=== PATIENT | male | born 1955 | race Caucasian/White ===

== ENCOUNTER 2017-10-14 19:39 | Emergency (ER) | payer MEDICAID, MEDICARE ==
--- OUTSIDE RECORDS SUMMARY | 2017-10-14 20:26 | XMS REPORT ---
:1955 External Reference #:[id number] Author Organization [facility] Address [address] [place] [address] Phone [phone] Care Team Providers Name Role Phone John Paul Spencer M.D. Care Team Information Soil Technologist Unavailable Suman Winkler FNP Primary Care Physician Unavailable Payers Type Date Identification Numbers Payment Provider Subscriber Medicare Primary Policy Number: [id number] Medicare Rhett Corea PayID: [id number] [address] [place] [address] Medicaid Policy Number: [id number] Medicaid Rhett Corea PayID: [id number] [address] [place] [address] Problems Description No Information Family History Date Family Member(s) Problem(s) Comments Father Unknown Mother Unknown Social History Type Date Description Comments Cigarette Use Currently smokes 1-5 Cigarettes Daily ETOH Use Quit Using Alcohol. Recreational Drug Use Never Used Drugs Allergies, Adverse Reactions, Alerts Date Description Reaction Status Severity Comments 10/20/2015 NKDA active Medications Medication Date Status Form Strength Qnty SIG Indications Ordering Provider Montelukast 06/30/ Active Tablets 10mg 30tabs 1 by mouth Linden Flores 2017 every day Joceline Joyce Fluocinolone 06/30/ Active Oil 0.01% 1units 5 drops as Mark Acetonide Ear 2017 needed in [place], [place] the [place] affected ear twice a day. Gabapentin / Active Capsules 100mg 1 by mouth Unknown 0000 three times a day Isentress / Active Tablets 400mg Unknown 0000 Olopatadine HCL / Active Solution 0.6% Unknown 0000 Rabeprazole / Active Tablets DR 20mg 1 by mouth Unknown Sodium 0000 every day Truvada / Active Tablets 200-300mg Unknown 0000 Wellbutrin XL 00/00/ Active Tablets ER 300mg 1 by mouth Unknown 0000 24HR every day Xanax / Active Tablets 1mg Unknown 0000 Xarelto 00/ Active Tablets 1 by mouth Unknown 0000 every day Dexamethasone 02/15/ Hx Tablets 1mg 7tabs one tab Mark, 2015 - daily for Isiah, days. M.D. 2016 Dexamethasone 01/18/ Hx Tablets 1mg 20tabs one tab Mark, 2015 - daily for Isiah, days. M.D. 2015 Dexamethasone 11/30/ Hx Tablets 2mg 14tabs 1 by mouth Mark, 2015 - every day Isiah, 01/17/ M.D. 2016 Fentanyl / Hx Patches 12mcg/HR Unknown 0000 - 72HR 2016 Vital Signs Date Vital Result Comment 10/05/2017 Weight 206.00 lb Height 71.75 inches 5'11.75" BMI (Body Mass Index) 28.1 kg/m2 BP Systolic 134 mmHg BP Diastolic 95 mmHg Heart Rate 78 /min O2 % BldC Oximetry 98 % Body Temperature 98.1 F Pain Level 0 09/01/2016 Weight 206.00 lb Height 71.75 inches 5'11.75" BMI (Body Mass Index) 28.1 kg/m2 BP Systolic 112 mmHg BP Diastolic 70 mmHg Heart Rate 75 /min O2 % BldC Oximetry 95 % Body Temperature 97.3 F Pain Level 0 06/30/2016 Weight 208.00 lb Height 71.75 inches 5'11.75" BMI (Body Mass Index) 28.4 kg/m2 BP Systolic 144 mmHg BP Diastolic 88 mmHg Heart Rate 79 /min O2 % BldC Oximetry 97 % Body Temperature 98.0 F 03/15/2016 Weight 216.00 lb Height 71.75 inches 5'11.75" BMI (Body Mass Index) 29.5 kg/m2 BP Systolic 124 mmHg BP Diastolic 76 mmHg Heart Rate 73 /min O2 % BldC Oximetry 97 % Body Temperature 99.0 F 03/08/2016 Weight 217.00 lb Height 71.75 inches 5'11.75" BMI (Body Mass Index) 29.6 kg/m2 Heart Rate 114 /min O2 % BldC Oximetry 96 % Body Temperature 98.1 F 02/16/2016 Weight 205.00 lb Height 71.75 inches 5'11.75" BMI (Body Mass Index) 28.0 kg/m2 BP Systolic 130 mmHg BP Diastolic 72 mmHg Heart Rate 73 /min O2 % BldC Oximetry 98 % Body Temperature 97.6 F 01/19/2016 Weight 204.00 lb Height 71.75 inches 5'11.75" BMI (Body Mass Index) 27.9 kg/m2 BP Systolic 128 mmHg BP Diastolic 82 mmHg Heart Rate 73 /min O2 % BldC Oximetry 98 % Body Temperature 98.6 F 10/20/2015 Weight 204.00 lb Height 71.75 inches 5'11.75" BMI (Body Mass Index) 27.9 kg/m2 BP Systolic 124 mmHg BP Diastolic 72 mmHg Heart Rate 84 /min O2 % BldC Oximetry 94 % Body Temperature 96.8 F Results Description No Information Procedures Date CPT Code Description Status 05/11/2017 51924 Nasal Endoscopy, Diag. Completed 01/12/2017 39756 Nasal/Sinus Endoscopy, Surgical, W/Control Of Epistaxis Completed 06/30/2016 37926 Nasal Endoscopy, Diag. Completed 02/28/2016 93678 Stereotactic Computer-Assisted, Cranial, Extradural Completed 02/28/2016 27340 Esophagoscopy/Diagnostic Completed 02/28/2016 40319 Nasal/Sinus Endoscopy Surg/Sphen. Completed 02/28/2016 88026 Nasal/Sinus Endosc.W.Explor. Completed 02/28/2016 23755 Nasal/Sinus Endosc.W.Eth.Rem Tiss Completed 02/28/2016 49455 Nasal/Sinus Endosc.Surg.W.Ethmoid Completed 02/28/2016 21010 Submucous Resect.Turb.Par Or Comp Completed 02/28/2016 29448 Anesthesia, Nose & Accessory Sinus Surgery Not Completed Otherwise Spec 02/16/2016 62469 Fiberoptic Laryngoscopy,Diag. Completed 01/19/2016 89736 Nasal Endoscopy, Diag. Completed 10/20/2015 86373 Tympanometry Completed 10/20/2015 26210 Tympanometry Completed 10/20/2015 57927 Fiberoptic Laryngoscopy,Diag. Completed Encounters Type Date Location Provider CPT E/M Dx Office Visit 05/11/2017 1:00p [facility] Is[facility] Flores M.D. 39489 J31.0 K21.9 Office Visit 09/01/2016 12:30p [facility] Is[facility] Flores M.D. 68186 K21.9 J31.0 Office Visit 06/30/2016 12:30p [facility] Flores M.D. 05411 J31.0 K21.9 Office Visit 02/16/2016 1:45p [facility] Flores M.D. 76249 K21.9 J34.2 J32.9 Office Visit 01/19/2016 1:00p [facility] Flores M.D. 48323 J34.2 J34.3 K21.9 J32.9 Office Visit 12/01/2015 12:45p [facility] Flores M.D. 48316 J32.9 K21.9 Office Visit 10/20/2015 2:30p [facility] Is[facility] Florse M.D. 79216 H93.13 H91.90 K21.9 G47.33 R42 J32.9 Plan of Care Future Appointment(s):11/30/2017 1:00 pm - [facility] Flores M.D. at [facility]
--- OUTSIDE RECORDS SUMMARY | 2017-10-14 20:27 | XMS REPORT ---
:1955 External Reference #:[id number] Author Organization [facility] Address [address] [place] [address] [place] [address] Phone [phone] Care Team Providers Name Role Phone John Paul Spencer MD Care Team Information Outreach Coordinator Unavailable John Paul Spencer MD Primary Care Physician Unavailable Payers Type Date Identification Numbers Payment Provider Subscriber Medicare Primary Effective: Policy Number: Medicare Maya Corea 2004 [id number] PayID: [id number] [address] [place] [address] Medigap Part B Effective: 2009 Policy Number: [id number] Medicaid Maya Corea Group Name: 1 1 [address] PayID: [id number] [place] [address] Problems Date Description Provider Status Onset: 03/07/2011 Cervical spondylosis without Herrera Gillette M.D. Active myelopathy Onset: 03/07/2011 Neck sprain Lisa Rodriguez M.D. Active Onset: 03/07/2011 Generalized anxiety disorder Lisa Rodriguez M.D. Active Onset: 03/07/2011 Human immunodeficiency virus Lisa Rodriguez M.D. Active infection Family History Date Family Member(s) Problem(s) Comments General adopted Mother Metal Illness Social History Type Date Description Comments Marital Status Single Marital Status Not sexually active, no Ivdu. Marital Status he smokes 1 pack per week; he smokes after [facility]a Lives With Alone Occupation Disabled Cigarette Use Patient is a current cigarette smoker, smokes some days ETOH Use Denies alcohol use Smoking Patient is a current smoker, 1/2 pack per wk, smokes 2 smokes some days cigarettes per day Recreational Drug Use Denies Drug Use Daily Caffeine Does Not Consume Caffeine Exercise Type/Frequency Exercises regularly walker, PT General Hx Text homosexual no current partner previous partner HIV + cig former quit 2006 less 1 pk 24 yr alcohol recovered AA disability 2004 former owned temp comp Allergies, Adverse Reactions, Alerts Date Description Reaction Status Severity Comments 07/12/2010 Hay Fever flu like sytems active 12/04/2011 Amoxicillin severe diarrhea active 12/04/2011 Clindamycin severe diarrhea active 12/04/2011 Levaquin severe diarrhea active 12/04/2011 Erythromycin severe diarrhea active 07/04/2016 Cymbalta active Severe muscle tremors, spasticity, urine incontinence 07/04/2016 NSAIDs active diarrhea 07/06/2016 Losartan active dizzy and agitated 12/19/2016 Lyrica loss of ability to active Severe function Medications Medication Date Status Form Strength Qnty SIG Indications Ordering Provider Lidocaine 10/26 Active Ointment 5% 35.440gm 1 apply M79.1 to Valorie, affected M.D. area 12 hours on, 12 hours off Elbow 10/16 Active Misc 2units please M79.1 Segun Support/Elastic try for Valorie, Firm/Medium elbow M.D. support to improve lateral epicondyl itis Elbow 08/30 Active Misc 2units use daily M77.11 Segun Support/Elastic to help Valorie, Firm/Large epicondyl M.D. itis, right and left Wrist Splint 08/30 Active Misc 2units use daily M77.11 and at [facility], night to M.D. help with tendoniti s in the right and left hand Lanolin 07/12 Active Ointment 3gm apply as M72.0 needed Valorie, for hand M.D. discomfor t/ contractu res Blood Pressure 07/06 Active Kit 1units use as R03.0 Clarence Lamb directed DO RESHMA Iraheta Fentanyl Active Patches 12mcg/HR 1 patch Unknown /0000 72HR every 48 hours (12mcg) Isentress 00 Active Tablets 400mg 60tabs 1 by René /0000 mouth D. twice a [place], day M.D. Alprazolam Active Tablets 1mg take 2 Unknown /0000 tabs at hs Bupropion HCL ER Active Tablets ER 300mg 1 by Unknown (XL) / 24HR mouth every day Gabapentin Active Capsules 100mg 1 at 1900 Unknown /0000 and the 4 tabs at hs Rabeprazole Sod Active Tablet 20mg 1 tab po Unknown qam Saline Flush Active Solution 0.9% qd qhs Unknown Descovy Active Tablets 200-25mg 30tabs 1 by René / mouth D. every day Joceline Lepe Cyclobenzaprine Active Tablets 5mg 1 by Unknown HCL / mouth every 8 hours, as needed muscle spasm Xarelto Active Tablets 15mg 1 tab po Unknown qd Montelukast Active Tablets 10mg Mark, Sodium MD Isiah Tramadol HCL Active Tablets 50mg Take 1 Tablet By Mouth Three Times A Day as Needed For Pain Vitamin D Active Tablets take 1 tab by mouth daily Lidoderm 10/16 Hx Patches 5% 30units 1 apply M79.1 to Valorie - surjit M.DJessica 10/26 area hours on, 12 hours off Acetonide Oil 07/12 Hx ear drops Melvi Eugene M.D. 09/21 Lidoderm 03/04 Hx Patches 5% 30units topical 10 hours Melvi Prajapati M.D. 05/02 Tamsulosin HCL 12/17 Hx Capsules 0.4mg 30caps Take One Lisa Capsule Michael, - By Mouth M.DJessica 05/02 Bedtime Flomax 11/22 Hx Capsules 0.4mg 30caps Take One Lisa Capsule Michael, - By Mouth M.DJessica 05/02 Evening Trazodone HCL 08/05 Hx Tablets 50mg 30tabs Take One Tablet By Michael, - Mouth AT M.D. 05/02 as Needed Tamsulosin HCL 06/13 Hx Capsules 0.4mg 30caps 1 tab po 788.64 Lisa /2013 [facility] Melvi Rodriguez M.D. 12/06 Azithromycin 05/30 Hx Tablets 250mg 6tabs 2 tab po Lisa day 1 Michael, - then 1 M.D. 06/04 tab po /2012 day 2-5 Proair HFA 05/28 Hx Aerosol 108(90Bas 1units 2 puff 483.8 Van e) mcg/ac every 4 [place] - hr and , M.D. 09/04 ever 2 hr /2012 if needed Lomotil 10/04 Hx Tablets 2.5-0.025 80tabs 2 tab po mg 4x per Michael, - day until M.D. 12/03 diarrhea controlle d Tricor Hx Tablets 145mg 1 po qd Unknown - 06/04 Trazodone HCL Hx Tablets 50mg 30tabs [address] [facility], - bedtime M.D. 08/05 as needed Alprazolam Hx Tablets 1mg 1 - 2 po Unknown up to six - hours prn 05/02 anxiety Doxazosin Hx Tablets 1mg 1 po qd Unknown Mesylate - 06/04 Sertraline HCL Hx Tablets 100mg 60tabs 2 po qd Lisa Michael, - M.D. 05/[address] 20mg po qam Unknown - 10/02 Meloxicam Hx Tablets 15mg 1 po qd Unknown - 03/07 Tramadol HCL Hx Tablets 50mg qid prn Unknown - 12/03 Cyclobenzaprine Hx Tablets 10mg one po Unknown HCL 0000 tid prn - spasm 09/04 Fluticasone Hx Suspension 50mcg/Act 2 sprays Unknown Propionate 0000 each - nostril 10/02 Truvada Hx Tablets 200-300mg 1 po qd Unknown - 04/11 Norvir Hx Capsules 100mg 1 po qd Unknown - 09/17 Prezista Hx Tablets 800mg 1po qhs - 05/02 Stool Softener Hx Capsules 100mg 1 po bid - 10/02 Multi Vitamin / Hx Tablets no iron Unknown Mens - 06/04 Limbrel Hx Capsules 500mg 60caps 1 po qd - 10/02 Nascobal Hx Solution 500mcg/0. 23ml 1 spray Unknown / 1ML in one - nostril 05/28 once a week Patanase Hx Solution 0.6% 1units one puffs / both - sides 10/02 twice a day Singulair Hx Tablets 10mg 30tabs 1 po qd - 10/02 Voltaren Hx Gel 1% 500gm apply 4grams - to 12/03 area qid prn Meloxicam Hx Tablets 7.5mg 30tabs 1 po bid - 06/04 Vitamin D Hx Tablets 1000Unit 90tabs 2 po qd - 06/04 Nexium Hx Capsules 20mg 30caps 1 po qd - 05/[address] 20mg 30tabs 1 po qd - 06/04 Tramadol HCL Hx Tablets 50mg 40tabs qid prn - 06/04 Xanax Hx Tablets 1mg 6tabs 1 po bid prn - 05/[address] 5mg prn - 06/04 Voltaren Hx Gel 1% Lrgtube apply 2 grams - topically 09/18 times a day Tramadol HCL Hx Tablets 50mg 40tabs 1 - 2 po q 4-6h - prn 05/02 Meloxicam Hx Tablets 7.5mg 30tabs 1 po bid Lisa /0000 Melvi Rodriguez M.D. 09/04 Lomotil Hx Tablets 2.5-0.025 20tabs po qd prn mg diarrhea - 05/02 Fenofibrate Hx Tablets 145mg 30tabs 1 po qd Unknown / - 05/02 Doxazosin Hx Tablets 1mg 1 po qd Unknown Mesylate / - 09/18 Chlorhexidine Hx Solution 0.12% 473ml 15 ml Unknown Gluconate /0000 swish/spi - t bid 09/[address] 20mg 30tabs 1 po qd - 05/02 Vitamin D Hx Tablets 1000Unit 30tabs 2 po qday Unknown / - 12/06 Pepto-Bismol Hx Tablet 30cc q 1 Unknown / hr prn; - max 8 05/02 doses/day /2013 for gi upset Multi Vitamin Hx Tablets 1 po qd Unknown Mens - 05/02 Stool Softener Hx Capsules 100mg 1 po bid Unknown / prn - 05/02 Tizanidine Hx Tablet 1 tab po Unknown / tid prn - 05/02 Diphenoxylate/At Hx Tablets 2.5-0.025 180tabs take two Unknown ropine / mg tablets - qid day 09/04 diarhea Dymista Hx Suspension 137-50mcg 1 spray Unknown / /Act bid - 05/02 Voltaren Hx Gel 1% 300gm apply 2 Unknown / grams - topically 05/02 times a day Probiotic Hx Capsules 30caps 1 po qd Unknown / - 07/28 Nasal Moist Hx Solution 0.65% 1ml 2 sprays Unknown / in each - nostril 5 05/02 times day prn Laxative Hx Tablets 25mg prn Unknown / - 05/02 Xanax Hx Unknown / - 07/08 Fentanyl Hx Transderma 12mg 1 patch Unknown / l together - with 25mg 09/15 patch /2015 Olopatadine HCL Hx Solution 0.6% 2 Unknown / sprays/no - stril two 04/11 times day Multivitamins Hx Capsules 1 by Unknown /0000 mouth - every day 07/05 Movantik Hx Tablets 12.5mg 1 by Unknown /0000 mouth - every day 04/11 pr Relistor Hx Solution 8mg/0.4ML prn Unknown /0000 - 09/15 Compazine Hx Tablets 10mg 1 by Unknown /0000 mouth - every 6 / hours needed nausea Lisinopril Hx Tablets 5mg 1/2 tab Unknown / by mouth - every day 07/05 Olopatadine HCL Hx Solution 0.6% nasal Unknown / spray, as - directed 07/05 Vitamin D Hx Capsules [id number] take one Unknown (Ergocalciferol) capsule - by mouth 10/16 weekly Stool Softener Hx Capsules 250mg prn / - 03/13 Fluocinolone Hx Oil 0.01% Instill 5 Unknown Acetonide Drops as - Needed In 09/21 Affected Ear Twice A Day. Vitamin D2 Hx Tablets 1.25 mg Unknown / once - monthly 07/17 Vitamin D2 Hx Tablets 1.25mg Unknown - 03/13 Medications Administered in Office Medication Date Status Form Strength Qnty SIG Indications Ordering Provider Inj, Administered Injection Clarence Lamb Regadenoson, 017 DO Esequiel 0.1 MG FACC Technetium TC Administered Injection Clarence S. 99M 017 DO Esequiel Tetrofosmin, FACC Per Unit Dose Up To 40 Millicuries Immunizations CPT Code Status Date Vaccine Lot # [id number] Given 02/28/2017 Fluzone High Dose Vital Signs Date Vital Result Comment 09/19/2017 Height 72 inches 6'0" Weight 217.50 lb Heart Rate 80 /min BP Systolic Sitting 130 mmHg BP Diastolic Sitting 74 mmHg Respiratory Rate 14 /min Pain Level 3 BMI (Body Mass Index) 29.5 kg/m2 07/18/2017 Height 72 inches 6'0" Weight 219.25 lb Heart Rate 70 /min BP Systolic Sitting 128 mmHg BP Diastolic Sitting 70 mmHg Respiratory Rate 16 /min Body Temperature 97.9 F BMI (Body Mass Index) 29.7 kg/m2 03/14/2017 Height 72 inches 6'0" Weight 204.25 lb Heart Rate 84 /min BP Systolic Sitting 120 mmHg BP Diastolic Sitting 78 mmHg Respiratory Rate 14 /min Body Temperature 98.4 F BMI (Body Mass Index) 27.7 kg/m2 12/19/2016 Height 72 inches 6'0" Weight 212.25 lb Heart Rate 88 /min BP Systolic Sitting 128 mmHg BP Diastolic Sitting 90 mmHg Respiratory Rate 16 /min O2 % BldC Oximetry 97 % BMI (Body Mass Index) 28.8 kg/m2 10/16/2016 Height 72 inches 6'0" Weight 213.00 lb Heart Rate 88 /min BP Systolic Sitting 120 mmHg BP Diastolic Sitting 80 mmHg Respiratory Rate 14 /min Pain Level 8 BMI (Body Mass Index) 28.9 kg/m2 09/22/2016 Height 72 inches 6'0" Weight 212.00 lb Heart Rate 80 /min BP Systolic Sitting 114 mmHg BP Diastolic Sitting 76 mmHg Respiratory Rate 14 /min BMI (Body Mass Index) 28.7 kg/m2 08/30/2016 Height 72 inches 6'0" Weight 209.12 lb Heart Rate 88 /min BP Systolic Sitting 140 mmHg BP Diastolic Sitting 90 mmHg Respiratory Rate 14 /min Pain Level 6 BMI (Body Mass Index) 28.4 kg/m2 07/12/2016 Height 72 inches 6'0" Weight 218.00 lb Heart Rate 89 /min BP Systolic Sitting 117 mmHg BP Diastolic Sitting 80 mmHg Body Temperature 98.3 F Pain Level 7 BMI (Body Mass Index) 29.6 kg/m2 07/06/2016 Height 72 inches 6'0" Weight 217.00 lb Heart Rate 88 /min BP Systolic 136 mmHg left arm, reg cuff BP Diastolic 92 mmHg left arm, reg cuff BP Systolic Sitting 136 mmHg right arm, reg cuff BP Diastolic Sitting 90 mmHg right arm, reg cuff BP Systolic Standing 116 mmHg right arm, reg cuff BP Diastolic Standing 88 mmHg right arm, reg cuff BMI (Body Mass Index) 29.4 kg/m2 04/12/2016 Height 72 inches 6'0" Weight 221.00 lb Heart Rate 68 /min BP Systolic Sitting 130 mmHg BP Diastolic Sitting 80 mmHg Respiratory Rate 14 /min BMI (Body Mass Index) 30.0 kg/m2 09/17/2015 Height 72 inches 6'0" Weight 205.00 lb Heart Rate 80 /min BP Systolic Sitting 122 mmHg BP Diastolic Sitting 90 mmHg Respiratory Rate 14 /min BMI (Body Mass Index) 27.8 kg/m2 08/31/2015 Height 72 inches 6'0" Weight 208.00 lb Heart Rate 84 /min BP Systolic Sitting 118 mmHg BP Diastolic Sitting 76 mmHg Body Temperature 98.4 F Pain Level 9 BMI (Body Mass Index) 28.2 kg/m2 08/24/2015 Height 72 inches 6'0" Weight 205.00 lb Heart Rate 80 /min BP Systolic Sitting 124 mmHg BP Diastolic Sitting 86 mmHg Respiratory Rate 16 /min BMI (Body Mass Index) 27.8 kg/m2 07/29/2015 Height 72 inches 6'0" Weight 204.00 lb Heart Rate 82 /min BP Systolic Sitting 138 mmHg BP Diastolic Sitting 88 mmHg Pain Level 7 BMI (Body Mass Index) 27.7 kg/m2 07/26/2015 Height 72 inches 6'0" Weight 205.00 lb Heart Rate 92 /min BP Systolic Sitting 140 mmHg BP Diastolic Sitting 76 mmHg Respiratory Rate 16 /min BMI (Body Mass Index) 27.8 kg/m2 05/02/2013 Height 72 inches 6'0" Weight 199.00 lb Heart Rate 74 /min BP Systolic 140 mmHg BP Diastolic 82 mmHg BMI (Body Mass Index) 27.0 kg/m2 12/06/2012 Height 72 inches 6'0" Weight 21.00 lb Heart Rate 84 /min BP Systolic Sitting 108 mmHg BP Diastolic Sitting 72 mmHg BMI (Body Mass Index) 2.8 kg/m2 11/15/2012 Heart Rate 80 /min BP Systolic Sitting 112 mmHg BP Diastolic Sitting 76 mmHg Respiratory Rate 16 /min 09/17/2012 Weight 201.00 lb Heart Rate 83 /min BP Systolic Sitting 119 mmHg BP Diastolic Sitting 77 mmHg 09/04/2012 Weight 197.00 lb Heart Rate 63 /min BP Systolic Sitting 110 mmHg BP Diastolic Sitting 64 mmHg Respiratory Rate 12 /min 06/13/2012 Height 71.5 inches 5'11.50" Weight 197.00 lb Heart Rate 79 /min BP Systolic Sitting 118 mmHg BP Diastolic Sitting 80 mmHg BMI (Body Mass Index) 27.1 kg/m2 06/04/2012 Height 71.5 inches 5'11.50" Weight 197.00 lb Heart Rate 55 /min BP Systolic 110 mmHg BP Diastolic 78 mmHg BP Systolic Sitting 148 mmHg BP Diastolic Sitting 100 mmHg Body Temperature 98.2 F O2 % BldC Oximetry 97 % BMI (Body Mass Index) 27.1 kg/m2 05/28/2012 Height 71.5 inches 5'11.50" Weight 199.00 lb Heart Rate 105 /min BP Systolic Sitting 133 mmHg BP Diastolic Sitting 79 mmHg Respiratory Rate 16 /min Body Temperature 98.1 F O2 % BldC Oximetry 96 % BMI (Body Mass Index) 27.4 kg/m2 12/04/2011 Height 71.5 inches 5'11.50" Weight 206.00 lb Heart Rate 70 /min BP Systolic 118 mmHg BP Diastolic 86 mmHg Respiratory Rate 16 /min Body Temperature 97.1 F BMI (Body Mass Index) 28.3 kg/m2 10/03/2011 Height 71.5 inches 5'11.50" Weight 209.00 lb Heart Rate 86 /min BP Systolic Sitting 105 mmHg BP Diastolic Sitting 82 mmHg Body Temperature 97.9 F BMI (Body Mass Index) 28.7 kg/m2 03/07/2011 Height 71.5 inches 5'11.50" Weight 214.00 lb Heart Rate 76 /min BP Systolic Sitting 136 mmHg BP Diastolic Sitting 82 mmHg BMI (Body Mass Index) 29.4 kg/m2 08/02/2010 Weight 201.00 lb Heart Rate 86 /min BP Systolic Sitting 118 mmHg BP Diastolic Sitting 80 mmHg 07/12/2010 Height 72.5 inches 6'0.50" Weight 202.00 lb Heart Rate 88 /min BP Systolic Sitting 110 mmHg BP Diastolic Sitting 76 mmHg BMI (Body Mass Index) 27.0 kg/m2 Results Test Date Test Result H/L Range Note HIV-1 Rna QNT By 07/13/2017 HIV-1 Rna (PCR) Undetected copies/mL Undetected 1 PCR Sli CBC Auto Diff 07/13/2017 White Blood Count 7.2 10^3/uL 3.5-10.8 Red Blood Count 4.63 10^6/uL 4.0-5.4 Hemoglobin 14.8 g/dL 14.0-18.0 Hematocrit 44 % 42-52 Mean Corpuscular Volume 94 fL 80-94 Mean Corpuscular Hemoglobin 32 pg High 27-31 Mean Corpuscular HGB Conc 34 g/dL 31-36 Red Cell Distribution Width 13 % 10.5-15 Platelet Count 216 10^3/uL 150-450 Mean Platelet Volume 8.0 um3 7.4-10.4 Abs Neutrophils 4.4 10^3/uL 1.5-7.7 Abs Lymphocytes 2.1 10^3/uL 1.0-4.8 Abs Monocytes 0.5 10^3/uL 0-0.8 Abs Eosinophils 0.2 10^3/uL 0-0.6 Abs Basophils 0.1 10^3/uL 0-0.2 Abs Nucleated RBC 0 10^3/uL Granulocyte % 60.7 % 38-83 Lymphocyte % 28.8 % 25-47 Monocyte % 7.3 % High 0-7 Eosinophil % 2.3 % 0-6 Basophil % 0.9 % 0-2 Nucleated Red Blood Cells % 0 Comp Metabolic Panel 07/13/2017 Sodium 137 mmol/L Low 139-145 Potassium 4.2 mmol/L 3.5-5.0 Chloride 106 mmol/L 101-111 Co2 Carbon Dioxide 25 mmol/L 22-32 Anion Gap 6 mmol/L 2-11 Glucose 94 mg/dL 70-100 Blood Urea Nitrogen 13 mg/dL 6-24 Creatinine 1.01 mg/dL 0.67-1.17 BUN/Creatinine Ratio 12.9 8-20 Calcium 9.8 mg/dL 8.6-10.3 Total Protein 6.9 g/dL 6.4-8.9 Albumin 4.2 g/dL 3.2-5.2 Globulin 2.7 g/dL 2-4 Albumin/Globulin Ratio 1.6 1-3 Total Bilirubin 0.70 mg/dL 0.2-1.0 Alkaline Phosphatase 84 U/L 34-104 Alt 17 U/L 7-52 Ast 15 U/L 13-39 Egfr Non- 75.1 >60 Egfr 96.6 >60 2 Laboratory test finding 07/13/2017 Hepatitis C Antibody Nonreactive Nonreactive Hepatitis B Surface Ag Nonreactive Nonreactive Hepatitis B Nel AB Titer 07/13/2017 Hepatitis B Surface AB Immune Immune Hep B Surf AB Level 27.17 mIU/mL >12 Quantiferon Gold TB 07/13/2017 QuantiFERON-Tb Gold Plus Negative Negative 3 TB1 Ag minus Nil Result 0 IU/mL TB2 Ag minus Nil Result 0.01 IU/mL TB Mitogen minus Nil Result > 10.00 IU/mL TB Nil Result 0.04 IU/mL 4 Lipid Profile (Trig/Chol/HDL) 08/03/2016 Triglycerides 295 mg/dL 5 Cholesterol 174 mg/dL 6 HDL Cholesterol 28.4 mg/dL 7 LDL Cholesterol 87 mg/dL 8 Laboratory test finding 08/03/2016 Creatine Kinase(CK) 66 U/L 10-223 9 Laboratory test finding 06/07/2016 C Reactive Protein < 1.00 mg/L < 5.00 10 Testosterone Total 343.18 ng/dL 240-950 FSH (Follicle Stim Hormone) 6.7 mIU/mL 1-20 LH (Lutenizing Hormone) 5.3 ?IU/mL 2-12 Erythrocyte Sed Rate 8 mm/Hr 0-20 Rheumatoid Factor <15 IU/mL <15 11 Cyclic Citrullinated Pep Igg <15.6 U 12 Anti Nuclear Antibody 0.2 U 13 Laboratory test finding 08/13/2015 Lyme Disease Serology Negative Negative 14 Anti Double Stranded Dna AB <12.3 IU/mL 15 Hla B27 08/13/2015 Hla B27 Negative 16 Hla B27 Interp See Comment 17 Laboratory test finding 08/13/2015 C Reactive Protein 3.08 mg/L < 5.00 18 Connective Tissue Panel 08/13/2015 Anti-Nuclear Antibody 0.3 U 19 Cyclic Citrullinated Peptide <15.6 U 20 Interpretation See Comment 21 Inr/Protime 12/16/2012 Inr 1.03 High 0.87-0.97 Laboratory test 12/16/2012 Activated Partial 38.3 seconds High 22.18- 37.18 finding Thrombo Time Type & Screen 08/29/2012 Patient Blood Type O Positive Antibody Screen NEGATIVE Laboratory test finding 08/29/2012 Troponin I 0 ng/mL 0-0.06 22 Comp Metabolic Panel 08/29/2012 Sodium 135 mmol/L 133-145 Potassium 4.1 mmol/L 3.5-5.0 Chloride 103 mmol/L 101-111 Co2 Carbon Dioxide 26.0 mmol/L 22-32 Anion Gap 6.0 mmol/L 2-11 Glucose 101 mg/dL High 70-100 Blood Urea Nitrogen 11 mg/dL 6-24 Creatinine 1.10 mg/dL 0.50-1.40 BUN/Creatinine Ratio 10.0 8-20 Calcium 9.5 mg/dL 8.1-9.9 Total Protein 7.3 g/dL 6.2-8.1 Albumin 4.2 g/dL 3.6-5.4 Globulin 3.1 g/dL 2-4 Albumin/Globulin Ratio 1.4 1-3 Total Bilirubin 0.6 mg/dL 0.4-1.5 Alkaline Phosphatase 71 U/L 30-110 Alt 16 U/L 14-54 Ast 22 U/L 12-42 Egfr Non- 69.2 >60 Egfr 89.1 >60 23 Laboratory test 08/29/2012 Activated Partial 39.7 seconds High 22.18- 37.18 finding Thrombo Time Inr/Protime 08/29/2012 Inr 0.98 High 0.87-0.97 CBC Auto Diff 08/29/2012 White Blood Count 5.4 10^3/uL 4.8-10.8 Red Blood Count 4.28 10^6/uL 4.0-5.4 Hemoglobin 14.0 g/dL 14.0-18.0 Hematocrit 41 % Low 42-52 Mean Corpuscular Volume 96 fL High 80-94 Mean Corpuscular Hemoglobin 33 pg High 27-31 Mean Corpuscular HGB Conc 34 g/dL 31-36 Red Cell Distribution Width 14 % 10.5-15 Platelet Count 201 10^3/uL 150-450 Mean Platelet Volume 9 um3 7.4-10.4 Abs Neutrophils 3.6 10^3/uL 1.5-7.7 Abs Lymphocytes 1.3 10^3/uL 1.0-4.8 Abs Monocytes 0.4 10^3/uL 0-0.8 Abs Eosinophils 0.1 10^3/uL 0-0.6 Abs Basophils 0 10^3/uL 0-0.2 Abs Nucleated RBC 0.02 10^3/uL Granulocyte % 66.3 % 38-83 Lymphocyte % 24.8 % Low 25-47 Monocyte % 6.8 % 1-9 Eosinophil % 1.6 % 0-6 Basophil % 0.5 % 0-2 Nucleated Red Blood Cells % 0.4 Urinalysis 08/29/2012 Urine Color Yellow Urine Appearance Clear Urine Specific [place] 1.005 Low 1.010-1.030 Urine Esterase Negative Negative Urine Nitrate Negative Negative Urine Urobilinogen Negative E.U./dL Negative Urine Protein Negative mg/dL Negative Urine pH 7.0 5-9 Urine Blood Negative Negative Urine Ketones Negative mg/dL Negative Urine Bilirubin Negative Negative Urine Glucose Negative mg/dL Negative Ua Routine 06/13/2012 Ua Specific [place] 1.020 Ua PH 6.0 Ua Color YELLOW Ua Appera CLEAR Ua WBC NEG Ua Protein NEG Ua Glucose NEG Ua Ketones NEG Ua Bilirubin NEG Ua Urobilinogen NEG Ua Nitrite NEG Ua Occult Blood NEG Laboratory test finding 06/07/2012 C. difficile Amplified (SEE NOTE) 24 Dna Laboratory test finding 05/28/2012 Vitamin B12 388 pg/mL 180-914 Methylmalonic Acid 0.21 nmol/mL <=0.40 25 Comp Metabolic Panel 05/28/2012 Sodium 135 mmol/L 133-145 Potassium 5.0 mmol/L 3.5-5.0 Chloride 102 mmol/L 101-111 Co2 Carbon Dioxide 26.0 mmol/L 22-32 Anion Gap 7.0 mmol/L 2-11 Glucose 100 mg/dL 70-100 Blood Urea Nitrogen 12 mg/dL 6-24 Creatinine 1.30 mg/dL 0.50-1.40 BUN/Creatinine Ratio 9.2 8-20 Calcium 10.1 mg/dL High 8.1-9.9 Total Protein 6.6 g/dL 6.2-8.1 Albumin 4.2 g/dL 3.6-5.4 Globulin 2.4 g/dL 2-4 Albumin/Globulin Ratio 1.8 1-3 Total Bilirubin 0.6 mg/dL 0.4-1.5 Alkaline Phosphatase 67 U/L 30-110 Alt 27 U/L 14-54 Ast 25 U/L 12-42 Egfr Non- 57.1 >60 Egfr 73.4 >60 26 CBC Auto Diff 05/28/2012 White Blood Count 7.3 10^3/uL 4.8-10.8 Red Blood Count 4.54 10^6/uL 4.0-5.4 Hemoglobin 14.9 g/dL 14.0-18.0 Hematocrit 44 % 42-52 Mean Corpuscular Volume 98 fL High 80-94 Mean Corpuscular Hemoglobin 33 pg High 27-31 Mean Corpuscular HGB Conc 34 g/dL 31-36 Red Cell Distribution Width 13 % 10.5-15 Platelet Count 210 10^3/uL 150-450 Mean Platelet Volume 9 um3 7.4-10.4 Abs Neutrophils 5.3 10^3/uL 1.5-7.7 Abs Lymphocytes 1.3 10^3/uL 1.0-4.8 Abs Monocytes 0.5 10^3/uL 0-0.8 Abs Eosinophils 0.1 10^3/uL 0-0.6 Abs Basophils 0.1 10^3/uL 0-0.2 Abs Nucleated RBC 0 10^3/uL Granulocyte % 72.1 % 38-83 Lymphocyte % 18.4 % Low 25-47 Monocyte % 7.2 % 1-9 Eosinophil % 1.1 % 0-6 Basophil % 1.2 % 0-2 Nucleated Red Blood Cells % 0.1 Surgical Pathology 10/30/2011 Surgical Pathology <SEE NOTE > 27 Clotest 10/30/2011 M <SEE NOTE> 28 Laboratory test 10/03/2011 Stool Culture <SEE NOTE> 29 finding 1 Result in log copies/mL is Undetected. ADDITIONAL INFORMATION The quantification range of this assay is 20 to 10,000,000 copies/mL (1.30 log copies/mL to 7.00 log copies/mL). Testing was performed by the DEMI AmpliPrep/DEMI TaqMan HIV-1 Test version 2.0 ([employer] This test has been modified from the liquid center assembler's instructions. Its performance characteristics were determined by [facility] in a manner consistent with CLIA requirements. This test has not been cleared or approved by the U.S. Food and Drug Administration. Test Performed by: [address] [address] Because ethnic data is not always readily available, this report includes an eGFR for both -Americans and non- Americans. The National Kidney Disease Education Program (NKDEP) does not endorse the use of the MDRD equation for patients that are not between the ages of 18 and 70, are , have extremes of body size, muscle mass, or nutritional status, or are non- or non-. According to the National Kidney Foundation, irrespective of diagnosis, the stage of the disease is based on the level of kidney function: Stage Description GFR(mL/min/1.73 m(2)) 1 Kidney damage with normal or decreased GFR 90 2 Kidney damage with mild decrease in GFR 60-89 3 Moderate decrease in GFR 30-59 4 Severe decrease in GFR 15-29 5 Kidney failure <15 (or dialysis) 3 No interferon-gamma response to M. tuberculosis antigens was detected. Infection with M. tuberculosis is unlikely. A single negative result does not exclude infection with M. tuberculosis. In patients at high risk for M.tuberculosis infection, a second test should be considered in accordance with the 2017 ATS/IDSA/CDC Clinical Practice Guidelines for Diagnosis of Tuberculosis in Adults and Children [Manda JOHNSON et. al. Clin. Infect. Dis. 2017;64(2):111-115]. 4 Test Performed by: [facility] [address] [place] [address] 5 Desirable <150 Borderline high 150-199 High 200-499 Very High >500 6 Desirable <200 Borderline high 200-239 High >239 7 Low <40 Desirable: 40-60 High: >60 8 Desirable: <100 mg/dL Near Optimal: 100-129 mg/dL Borderline High: 130-159 mg/dL High: 160-189 mg/dL Very High: >189 mg/dL 9 FASTING 10 Acute inflammation: >10.00 11 Test Performed by: [facility] [place] [address] Machinist Instructor: Suman Gant II, M.D., Ph.D. 12 REFERENCE VALUE <20.0 (Negative) Test Performed by: [place] [address] Machinist Instructor: Suman Gant II, M.D., Ph.D. 13 REFERENCE VALUE <=1.0 (Negative) Test Performed by: [place] [address] Machinist Instructor: Suman Gant II, M.D., Ph.D. 14 Serologic response to B. burgdorferi infection is not detected, but cannot rule out early infection during which low or undetectable antibody levels to B. burgdorferi may be present. If clinically indicated, a new serum specimen should be submitted in 7-14 days. Test Performed by: [facility] [place] [address] Machinist Instructor: Suman Gant II, M.D., Ph.D. 15 REFERENCE VALUE <30.0 (Negative) Test Performed by: [facility] [place] [address] Machinist Instructor: Suman Gant II, M.D., Ph.D. 16 REFERENCE VALUE Not Applicable 17 RESULT: HLA-B27 antigen was not detected. ADDITIONAL INFORMATION Method: Flow Cytometry Performing Laboratory CLIA# [id number] Test Performed by: [place] [address] Machinist Instructor: Suman Gant II, M.D., Ph.D. 18 Acute inflammation: >10.00 19 REFERENCE VALUE <=1.0 (Negative) 20 REFERENCE VALUE <20.0 (Negative) 21 Tests for antibodies to dsDNA and MARIANNE antigens are not performed automatically unless the JIMENEZ result is > or= 3.0 U. Studies performed at [facility] indicate that positive JIMENEZ results <3.0 U are rarely accompanied by positive second order tests. Test Performed by: [facility] - [address] [address] Machinist Instructor: Suman Gant II, M.D., Ph.D. 22 Reference Range and Interpretation: TnI (ng/mL) Interpretation Less Than 0.06 ng/mL Not supportive of diagnosis of VA 0.06 - 0.50 ng/mL Indeterminate: suggest serial studies if clinically indicated. Greater than 0.5 ng/mL Consistent with diagnosis of VA 23 Because ethnic data is not always readily available, this report includes an eGFR for both -Americans and non- Americans. The National Kidney Disease Education Program (NKDEP) does not endorse the use of the MDRD equation for patients that are not between the ages of 18 and 70, are , have extremes of body size, muscle mass, or nutritional status, or are non- or non-. According to the National Kidney Foundation, irrespective of diagnosis, the stage of the disease is based on the level of kidney function: Stage Description GFR(mL/min/1.73 m(2)) 1 Kidney damage with normal or decreased GFR 90 2 Kidney damage with mild decrease in GFR 60-89 3 Moderate decrease in GFR 30-59 4 Severe decrease in GFR 15-29 5 Kidney failure <15 (or dialysis) 24 RUN DATE: 06/07/12 [facility] LAB LIVE PAGE 1 RUN TIME: [address] [place] [id number] Specimen Inquiry Name: MAYA COREA : [address]: Lisa Rodriguez MD Acct: [id number] Unit: [id number] AGE: 57 Location: LAB Re06/07/12 SEX: M Status: REG REF SPEC: [id number] LIZ: 06/07/12-1000 [facility] DR: Lisa Rodriguez MD REQ: [id number] RECD: 06/07/12 STATUS: COMP _ SOURCE: STOOL SPDESC: ORDERED: C. diff Amp DNA QUERIES: Medent Number [id number] Procedure Result Verified Site C. difficile Amplified DNA Final 06/07/12- 1413 ML C. difficile Amplif DNA Negative: No Toxigenic C. difficile Detected TEST LIMITATIONS: Assay does not distinguish between viable and nonviable organisms. Test results are to be used in conjunction with information available from the patient clinical evaluation and other diagnostic procedures. Two distinct groups have been identified that can harbor C. difficile asymptomatically at very high rates. Colonization at rates up to 50% and higher have been reported in infants and rates up to 32% in cystic fibrosis patients. END OF REPORT * ML=Testing performed at Main Lab DEPARTMENT OF PATHOLOGY, [address] [place] [address] Nacho Frazier M.D. Director [facility] Permit #[id number] 25 Test Performed by: [address] [address] Machinist Instructor: Salazar Hoyos III, M.D. 26 Because ethnic data is not always readily available, this report includes an eGFR for both -Americans and non- Americans. The National Kidney Disease Education Program (NKDEP) does not endorse the use of the MDRD equation for patients that are not between the ages of 18 and 70, are , have extremes of body size, muscle mass, or nutritional status, or are non- or non-. According to the National Kidney Foundation, irrespective of diagnosis, the stage of the disease is based on the level of kidney function: Stage Description GFR(mL/min/1.73 m(2)) 1 Kidney damage with normal or decreased GFR 90 2 Kidney damage with mild decrease in GFR 60-89 3 Moderate decrease in GFR 30-59 4 Severe decrease in GFR 15-29 5 Kidney failure <15 (or dialysis) 27 ---- RUN DATE: 11/01/11 [facility] NMI LIVE PAGE 1 RUN TIME: 1400 Specimen Inquiry RUN USER: INTERFACE -- [id number] Status: REG REF Re10/30/11 Age/Sex: 56/M Unit#: [id number] Location: [facility]. : 57 -- Specimen: [id number] [id number] Spec Date:10/30/11 Dr: Cheikh curry MD Spec Type: SURGICAL P Received:10/31/11 Copies to: Lisa aden MD SPECIMEN 1) BIOPSY GASTROESOPHAGEAL JUNCTION 2) BIOPSY HEPATIC FLEXURE POLYPS HISTORY POST-OP DIAGNOSIS: Colonoscopy to cecum. Two polyps. Esophagus biopsy, ga stritis biopsy. CLINICAL INFORMATION: No history given. GROSS DESCRIPTION 1) The specimen is received in formalin labelled Maya Corea, Biopsy GE Junction, and consists of two fragments of yellow tissue measuring in aggregate 0.4 x 0.3 x 0.3 cm. Submitted entirely, one cassette labelled 1. 2) The specimen is received in formalin labelled Maya Corea, Biopsy Hepatic Flexure Polyp, and consists of four fragments of yellow tissue measuring in aggregate 0.9 x 0.8 x 0.3 cm. Submitted entirely, one cassette labelled 2. DIAGNOSIS 1) GE junction, biopsy: A. Squamous mucosa with evidence of reflux disease. B. Cardia type mucosa with acute inflammation. C. Intestinal metaplasia is not seen. 2) Hepatic flexure, biopsy: A. Tubular adenoma. B. No high grade dysplasia or malignancy. Signed Electronically by: VITALIY COLEMAN 11/01/11 [facility] -- -- DEPARTMENT OF PATHOLOGY, [address] [place] [address] [facility] Permit #[id number] Joceline Kessler M.D. Assistant Dir hipolito -- 28 RUN DATE: 10/31/11 [facility] NMI LIVE PAGE 1 RUN TIME: 7439 Specimen Inquiry RUN USER: INTERFACE Name: MAYA COREA Status: REG REF Re10/30/11 Age/Sex: 56/M Unit#: [id number] Location: END : 57 SPEC #: [id number] LIZ: 10/30/11-1251 STATUS: ELIDA REQ #: [id number] RECD: 10/30/11-144 [facility] DR: Moody PALMA,Cheikh Uribe SOURCE: CLOTEST ENTR: 10/30/11-[address]: Michael PALMA,Lisa Viera [facility]: ORDERED: CLOTEST Procedure Result Verified Site > CLOTEST Final 10/31/11- 0757 ML CLOTEST NEGATIVE [facility] Permit #[id number] [address] [place], [place] [id number] DEPARTMENT OF PATHOLOGY, [address] [place] [address] [facility] Permit #[id number] Joceline Kessler M.D. Home Health Care Respiratory Therapist 29 RUN DATE: 10/05/11 [facility] NMI LIVE PAGE 1 RUN TIME: 1120 Specimen Inquiry RUN USER: INTERFACE Name: MAYA COREA Status: REG REF Re10/03/11 Age/Sex: 56/M Unit#: [id number] Location: [facility] : 57 SPEC #: [id number] LIZ: 10/03/11-1239 STATUS: COMP REQ #: [id number] RECD: 10/03/111610 [facility] DR: Michael PALMA,Lisa Viera SOURCE: STOOL ENTR: 10/03/[address]: STOOL CULTURE, C. DIFF AMP DNA, STL LACTOFERRIN COMMENTS: DIARRHEA AFTER 5 WEEKS ANTIBIOTICS UNABLE TO PERFORM SHIGA TOXIN TESTING. INSUFFICIENT GROWTH OF ENTERIC BACTERIA. QUERIES: MEDENT REQUISITION # [id number] ACT WKST: KAROLINA 10/05/11 #1 Tommie 10/05/11 #1 Procedure Result Verified Site > STOOL CULT SENSITIVITY Final 10/05/11- 1119 ML NO GROWTH OF NORMAL GRAM NEGATIVE ENTERIC LELO NEGATIVE FOR THE ENTERIC PATHOGENS - SALMONELLA, SHIGELLA, PLESIOMONAS, AEROMONAS AND YERSINIA VIBRIO, CAMPYLOBACTER, AND E. COLI 0157 NOT ROUTINELY TESTED FOR IN A STOOL CULTURE. PLEASE SUBMIT SAMPLE WITH SPECIFIC REQUEST FOR DESIRED ORGANISM(S). > STOOL SPECIMEN DESCRIPTION Final 10/03/11- 1932 ML STOOL COLOR BROWN STOOL FORM NONFORMED STOOL CONSISTENCY WATERY > CAMPYLOBACTER CULTURE Final 10/05/11- 1119 ML NO GROWTH OF CAMPYLOBACTER AFTER 48 HOURS > SHIGA TOXIN 1 AND 2 (EHEC) Final 10/05/11- 1120 ML Test not performed > C. DIFFICILE AMPLIFIED DNA Final 10/04/11- 1326 ML C. DIFFICILE AMPLIF DNA NEGATIVE: NO TOXIGENIC C. DIFFICILE DETECTED. TEST LIMITATIONS: Assay does not distinguish between viable and non-viable organisms. Test results are to be used in conjunction with information available from the patient clinical evaluation and other diagnostic procedures. Two distinct groups have been identified that can harbor C. difficile DEPARTMENT OF PATHOLOGY, [address] [place] [address] [facility] Permit #[id number] Nacho Frazier M.D. Director Vitaliy Coleman M.D. Home Health Care Respiratory Therapist RUN DATE: 10/05/11 [facility] NMI LIVE PAGE 2 RUN TIME: 1120 Specimen Inquiry RUN USER: INTERFACE Name: ROSEANNAMAYA Status: REG REF Re10/03/11 Age/Sex: 56/M Unit#: [id number] Location: [facility] : 57 -- -- CONTINU ED Procedure Result Verified Site C. DIFFICILE AMPLIFIED DNA Final (continued) 10/04/11- 1326 asymptomatically at very high rates. Colonization at rates up to 50% and higher have been reported in infants and rates up to 32% in cystic fibrosis patients. > FECAL LACTOFERRIN (STOOL WBC) Final 10/04/11- 1348 ML FECAL LACTOFERRIN NEGATIVE BY IMMUNOASSAY TEST LIMITATIONS: Assay detects elevated levels of lactoferrin released from fecal leukocytes as a marker of intestinal inflammation. The test may not be appropriate in immunocompromised persons. Fecal samples from breast fed infants should not be used with this assay. - [facility] Permit #[id number] [address] [place] [address] DEPARTMENT OF PATHOLOGY, [address] [place] [address] [facility] Permit #[id number] Nacho Frazier M.D. Director Vitaliy Coleman M.D. Home Health Care Respiratory Therapist Procedures Date CPT Code Description Status 08/08/2016 66353 Stress Test Completed 08/08/2016 78833 Myocardial Perfusion Imaging Tomographic (Spect) Completed Multiple Studies 07/20/2016 48145 Holter Monitor Review (24 hr)dr review & interp only Completed 07/18/2016 49564 ECHO Transthoracic, Real-Time 2D With Doppler And Color Completed Flow 07/18/2016 38329 ECG Monitor/Recording W/Visual Superimposition Scanning Completed 07/06/2016 28850 EKG Tracing & Interpretation Completed 09/17/2015 56480 Nerve Conduction 03-04 Studies Completed 09/17/2015 10056 Needle Electromyography Complete, Five Or More Muscles Completed Studied 05/02/2013 98776 Rad Exam; Foot Comp Completed 03/27/2013 34436 Rad Exam; Foot Comp Completed 03/27/2013 11690 Rad Exam; Foot Limited Completed 03/04/2013 44306 Rad Exam; Foot Comp Completed 02/03/2013 92620 Rad Exam; Foot Comp Completed 12/27/2012 78292 Rad Exam; Foot Limited Completed 12/17/2012 10099 Arthrodesis Great Toe MP JT Completed 12/17/2012 37813 Arthrodesis Great Toe MP JT Completed 12/06/2012 86041 EKG Tracing & Interpretation Completed 11/15/2012 56634 Nerve Conduction 13+ Studies Completed 11/04/2012 39804 Rad Exam; Foot Comp Completed 08/30/2012 09882 EEG Recording Awake & Drowsy Completed 07/30/2012 29647 Rad Exam; Elbow, Limited Completed 07/10/2012 61239 Rad Exam; Foot Limited Completed 07/10/2012 14518 Rad Exam; Elbow, Limited Completed 06/19/2012 42775 FX Metatarsal Care Completed 06/19/2012 39143 Closed Treatment Radial Head Or Neck FX W/O Completed Manipulation 10/30/2011 Colonoscopy Completed 08/15/2010 Diabetic Foot Exam Completed Encounters Type Date Location Provider CPT E/M Dx Office Visit 07/18/2017 11:30a [facility] René Lepe, 500[address] Z21 Infectious Diseases Joceline Z79.899 Office Visit 03/14/2017 11:30a [facility] René Lepe, 42956 Z21 Infectious Diseases Joceline Z79.899 Office Visit 12/19/2016 3:00p [facility] [place] [address] M79.1 Ruthie Car M77.12 R20.2 M47.812 Office Visit 10/16/2016 2:20p [facility] [place] [place] 37642 M79.1 Ruthie Car M77.12 R20.2 M18.0 Office Visit 09/22/2016 1:00p [facility] Kelsey Diaz M.D. 93700 R41.89 Services Of Ruthie M54.2 R20.2 Office Visit 08/30/2016 2:40p [facility] [place] 595[address] M25.552 Of Ruthie Car M79.1 M18.0 M77.11 G60.9 Office Visit 07/12/2016 1:40p [facility] [place] 19615 M72.0 Ruthie Car M25.552 M79.1 Z72.0 Office Visit 07/06/2016 1:00p [facility] [address] R07.9 [facility] FACC R06.02 R00.2 E78.5 M79.1 I82.502 R03.0 Z72.0 Office Visit 04/12/2016 9:30a [facility] Kelsey Diaz M.D. 77595 G31.84 Services Of Ruthie R51 Office Visit 08/31/2015 1:00p [facility] [place] 56803 M79.7 Ruthie Car M25.561 M25.562 R20.2 Office Visit 08/24/2015 12:00p [facility] Kelsey Diaz, 77667 G31.84 M.Rony R53.1 Office Visit 07/29/2015 1:00p [facility] [place], 98792 M79.7 Ruthie Anderson.Rony M25.561 M25.562 M06.4 Office Visit 07/26/2015 11:00a [facility] Kelsey Diaz M.D. 69668 R51 R20.2 M54.2 R41.89 R53.1 B20 Office Visit 05/02/2013 10:30a [facility] 53219 715.97 C.Afia Car Office Visit 03/27/2013 3:15p [facility] 23458 825.25 C.Afia Car Office Visit 12/06/2012 1:20p [facility] Internal Medicine Lisa Rodriguez M.D. 26501 735.0 - Brittney V72.83 Office Visit 11/27/2012 1:30p [facility] 39150 735.0 C.MLuis Car Office Visit 11/15/2012 3:00p [facility] Carlos Alberto Treadwell, 91449 355.3 Services Of Ruthie Car 729.82 Office Visit 11/04/2012 11:00a [facility] 76804 735.0 C.Afia Car Office Visit 09/17/2012 2:00p [facility] Internal Medicine - Lisa Rodriguez M.D. 47990 781.0 [place] 781.94 356.9 945.23 Office Visit 09/04/2012 9:00a [facility] Carlos Alberto Treadwell, 92102 356.9 Services Of Ruthie Car 729.1 Office Visit 08/29/2012 9:52a [facility] Kelsey Diaz M.D. 15704 781.94 Services Of Ruthie 781.0 042 Office Visit 06/13/2012 1:00p [facility] Internal Medicine Lisa Rodriguez M.D. 60133 787.91 - [place] 466.0 719.47 788.64 Office Visit 06/04/2012 9:40a [facility] Internal Medicine Lisa Rodriguez M.D. 92249 787.91 - [place] 466.0 719.47 Office Visit 05/28/2012 9:20a [facility] Internal Medicine Lisa Rodriguez M.D. 44559 483.8 - [place] Office Visit 12/04/2011 1:00p [facility] René Uribe 22375 V08 Infectious Diseases Joceline Lepe Office Visit 10/03/2011 11:40a [facility] Internal Medicine Lisa Rodriguez M.D. 71545 787.91 - [place] 553.1 Office Visit 03/07/2011 2:40p DO Not Use Protective Services Social Worker AT Lisa Rodriguez 32654 307.81 Keny aCr Office Visit 08/22/2010 11:00a [facility] [place], 82539 721.0 Of Ruthie Car Office Visit 08/02/2010 2:40p DO Not Use Protective Services Social Worker AT Lisa Rodriguez 39779 847.0 Keny Car 727.1 369.20 Office Visit 07/12/2010 1:40p DO Not Use Protective Services Social Worker AT Lisa Rodriguez M.D. 30333 727.1 [place] 300.02 847.0 042 Plan of Care Future Appointment(s):12/18/2017 1:00 pm - [place] M.D. at [facility]01/17/2018 1:20 pm - René Lepe M.D. at [facility] Ydar[facility]wg33/13/2018 - [place] M.D.M79.1 MyalgiaFollow up: Follow up in 3 months
[2017-10-14 20:35] LABS: ABS Basophils 0.1 10^3/ul (0-0.2); ABS Eosinophils 0.1 10^3/ul (0-0.6); ABS Lymphocytes 1.9 10^3/ul (1.0-4.8); ABS Monocytes 0.4 10^3/ul (0-0.8); ABS Neutrophils 4.8 10^3/ul (1.5-7.7); ABS Nucleated RBC 0 10^3/ul; Eosinophil % 1.7 % (0-6); Hematocrit 45 % (42-52); Hemoglobin 15.8 g/dl (14.0-18.0); Lymphocyte % 25.8 % (25-47); Mean Corpuscular HGB Conc 35 g/dl (31-36); Mean Corpuscular Hemoglobin 33 pg (27-31); Mean Corpuscular Volume 93 fL (80-94); Mean Platelet Volume 7.7 um3 (7.4-10.4); Nucleated Red Blood Cells % 0.1; Platelet Count 257 10^3/ul (150-450); Red Blood Count 4.84 10^6/ul (4.00-5.40); Red Cell Distribution Width 13 % (10.5-15); White Blood Count 7.3 10^3/ul (3.5-10.8)
[2017-10-14 20:43] LABS: INR 1.05 (0.77-1.02)
[2017-10-14 20:52] LABS: EGFR Non-African American 69.5 (>60)
[2017-10-14] MEDS ORDERED: Iohexol 300* (CONTRAST) 10 ML SDV IV ONE (21:05)
--- NOTE | 2017-10-14 21:38 | RAD ---
INDICATION: Right upper quadrant pain. COMPARISON: Comparison is made with a prior CT of the abdomen and pelvis from February 26, 2010. TECHNIQUE: Multiple real-time images of the right upper quadrant were obtained. FINDINGS: The gallbladder appears contracted no gallstones or pericholecystic fluid is seen. No positive sonographic Angela sign is seen. No intrahepatic ductal distention is seen. The common bile duct was not visualized. The liver is normal in size. There is a simple cyst in the anterior aspect of the liver measuring 4.2 x 3.1 cm in size. The pancreas is partially obscured by overlying bowel gas. The right kidney is normal in size without evidence for hydronephrosis. IMPRESSION: 1. THE GALLBLADDER IS CONTRACTED AND OTHERWISE UNREMARKABLE. 2. HEPATIC CYST.
--- NOTE | 2017-10-14 21:53 | RAD ---
INDICATION: Diffuse abdominal pain most prominent in the right upper quadrant. COMPARISON: Comparison is made with a prior CT of the abdomen and pelvis from February 26, 2010. TECHNIQUE: A CT scan of the abdomen and pelvis was performed with intravenous and with oral contrast following intravenous injection of 125 ml of Omnipaque 300 nonionic contrast. Contiguous axial sections were obtained from the lung bases through the symphysis pubis. Images were reconstructed in the coronal and sagittal planes. FINDINGS: There is mild dependent bilateral lower lobe subsegmental atelectasis. No pleural effusion is present. The liver is normal in size. There are several fluid density lesions present within the liver measuring up to 3.2 cm in size most consistent with cysts. Some are too small to characterize by CT although likely represent cysts. The gallbladder is contracted. No calcified gallstones are seen. The pancreas appears to be within normal limits. The spleen is moderately enlarged measuring up to 15.4 cm in length and appears unchanged from the prior study. No focal abnormality is seen. The kidneys and adrenal glands are normal in size. No hydronephrosis is seen. No significant focal renal abnormality is seen. The aorta is normal in caliber and demonstrates homogeneous contrast opacification. No significant enlarged retroperitoneal lymph nodes are seen. The stomach, small and large bowel appear nondistended. The appendix is not visualized. There is a surgical suture line present along the medial inferior aspect of the cecum likely from a prior appendectomy. There are scattered diverticuli within the colon. There is no evidence for diverticulitis or colitis. There is a small periumbilical hernia containing nondistended small bowel which is unchanged from the prior study. No free intraperitoneal air or fluid is seen. No significant focal osseous abnormality is seen. IMPRESSION: 1. NO EVIDENCE FOR ACUTE FINDING OR CAUSE FOR THE PATIENT'S ABDOMINAL PAIN IS SEEN. 2. SPLENOMEGALY, UNCHANGED. 3. MULTIPLE HEPATIC CYSTS. 4. SMALL PERIUMBILICAL HERNIA CONTAINING NONDISTENDED SMALL BOWEL, UNCHANGED.
[2017-10-14 21:55] VITALS: BP 162/98
--- NOTE | 2017-10-14 22:02 | ED ---
Apolonia Andrews Gabriel, scribed for Sushant Dutton MD on 10/14/17 at 2010 . Abdominal Pain/Male - HPI Summary HPI Summary: This patient is a 62 year old M [facility] [facility] [place] ABD pain that has gotten worse the last two days. The patient rates the pain 7/10 in severity. Patient reports blood streaking his BM, blood on the toilet paper, and black dried blood that occurred this morning. The patient states he feels dizzy and that for the last week his stomach has hurt like a TV screen, he has also have pain on either side of his penis but not on the penis. The patient states he has also had intermittent diaphoresis for the last week that became constant today. Patient denies fever.Hx HIV, GERD, anxiety, fibromyalgia, arthritis, - History of Current Complaint Chief Complaint: EDAbdPain Stated Complaint: ABD PAIN Time Seen by Provider: 10/14/17 19:41 Hx Obtained From: Patient Onset/Duration: Still Present, Worse Since - 2 Severity Initially: Severe Severity Currently: Severe Pain Intensity: 7 Pain Scale Used: 0-10 Numeric Location: Diffuse Radiates: No Associated Signs And Symptoms: Positive: Blood in Stool - Allergies/Home Medications Allergies/Adverse Reactions: Allergies Allergy/AdvReac Type Severity Reaction Status Date / Time all antibiotics Allergy Mild Diarrhea Uncoded 10/14/17 19:45 ENVIRONMENTAL/SEASONAL Allergy SNEEZE, Uncoded 10/14/17 19:45 COUGH, EYES ITCHY, SINUS PMH/Surg Hx/FS Hx/Imm Hx Endocrine/Hematology History: Reports: Other Endocrine/Hematological Disorders - HIV Denies: Hx Anticoagulant Therapy, Hx Diabetes, Hx Thyroid Disease Cardiovascular History: Denies: Hx Hypertension, Hx Pacemaker/ICD Respiratory History: Reports: Hx Sleep Apnea - HX OF BEFORE HAVING SURGERY Denies: Hx Asthma, Hx Chronic Obstructive Pulmonary Disease (COPD) GI History: Reports: Hx Gastroesophageal Reflux Disease - ON MEDS History: Denies: Hx Renal Disease Musculoskeletal History: Reports: Hx Arthritis - OSTEOARTHRITIS, Hx Back Problems, Hx Fibromyalgia, Other Musculoskeletal History - 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 Denies: Hx Dementia, Hx Seizures, Hx Transient Ischemic Attacks (TIA) Psychiatric History: Reports: Hx Anxiety, Hx Depression Denies: Hx Panic Disorder, Hx Substance Abuse - Surgical History Surgery Procedure, Year, and Place: SURGERY TO REMOVE EXTRA BONE FROM NASAL PASSAGE Hx Anesthesia Reactions: No Infectious Disease History: No Infectious Disease History: Reports: Hx Human Immunodeficiency Virus (HIV) Denies: Hx Hepatitis, Traveled Outside the [place] in Last 30 Days - Family History Known Family History: Negative: Respiratory Disease, Seizure Disorder - Social History Occupation: Unemployed - disabled Alcohol Use: None Substance Use Type: Reports: None Smoking Status (MU): Current Some Day Smoker Type: Cigarettes Amount Used/How Often: 10 cigarettes/month Have You Smoked in the Last Year: Yes Review of Systems Positive: Skin Diaphoresis. Negative: Fever Positive: Abdominal Pain, Other - blood in his stool Genitourinary: Other - pain near the penis All Other Systems Reviewed And Are Negative: Yes Physical Exam - Summary Physical Exam Summary: Appearance: Well appearing, no pain distress Skin: warm, dry, reflects adequate perfusion Head/face: normal Eyes: EOMI, ERNESTINE ENT: normal Neck: supple, non-tender Respiratory: CTA, breath sounds present Cardiovascular: RRR, pulses symmetrical and strong, no murmur Abdomen: non-tender, soft, wide spread tenderness more in RUQ guards diffusely Bowel Sounds: present Musculoskeletal: normal, strength/ROM intact Neuro: normal, sensory motor intact, A&Ox3 Rectal: small non inflamed hemorrhoid, no active bleeding Triage Information Reviewed: Yes Vital Signs On Initial Exam: Initial Vitals Temp Pulse Resp BP Pulse Ox 97.0 F 86 20 153/98 96 10/14/17 19:43 10/14/17 19:43 10/14/17 19:43 10/14/17 19:43 10/14/17 19:43 Vital Signs Reviewed: Yes Diagnostics - Vital Signs Vital Signs Temp Pulse Resp BP Pulse Ox 10/14/17 19:43 97.0 F 86 20 153/98 96 - Laboratory Lab Results: Lab Results 10/14/17 10/14/17 10/14/17 Range/Units 20:26 20:26 20:26 WBC 7.3 (3.5-10.8) 10^3/ul RBC 4.84 (4.00-5.40) 10^6/ul Hgb 15.8 (14.0-18.0) g/dl Hct 45 (42-52) % MCV 93 (80-94) fL MCH 33 H (27-31) pg MCHC 35 (31-36) g/dl RDW 13 (10.5-15) % Plt Count 257 (150-450) 10^3/ul MPV 7.7 (7.4-10.4) um3 Neut % (Auto) 65.6 (38-83) % Lymph % (Auto) 25.8 (25-47) % [place] % (Auto) 5.7 (0-7) % Eos % (Auto) 1.7 (0-6) % Baso % (Auto) 1.2 (0-2) % Absolute Neuts (auto) 4.8 (1.5-7.7) 10^3/ul Absolute Lymphs (auto) 1.9 (1.0-4.8) 10^3/ul Absolute Monos (auto) 0.4 (0-0.8) 10^3/ul Absolute Eos (auto) 0.1 (0-0.6) 10^3/ul Absolute Basos (auto) 0.1 (0-0.2) 10^3/ul Absolute Nucleated RBC 0 10^3/ul Nucleated RBC % 0.1 INR (Anticoag Therapy) 1.05 H (0.77-1.02) APTT 35.8 (26.0-36.3) seconds Sodium (135-145) mmol/L Potassium Chloride (101-111) mmol/L Carbon Dioxide (22-32) mmol/L Anion Gap (2-11) mmol/L BUN (6-24) mg/dL Creatinine (0.67-1.17) mg/dL Est GFR ( Amer) (>60) Est GFR (Non-Af Amer) (>60) BUN/Creatinine Ratio (8-20) Glucose (70-100) mg/dL Calcium (8.6-10.3) mg/dL Total Bilirubin (0.2-1.0) mg/dL AST ALT (7-52) U/L Alkaline Phosphatase (34-104) U/L Troponin I (<0.04) ng/mL Total Protein (6.4-8.9) g/dL Albumin (3.2-5.2) g/dL Globulin (2-4) g/dL Albumin/Globulin Ratio (1-3) Lipase (11.0-82.0) U/L Blood Type O Positive Antibody Screen Negative 10/14/17 Range/Units 20:26 WBC (3.5-10.8) 10^3/ul RBC (4.00-5.40) 10^6/ul Hgb (14.0-18.0) g/dl Hct (42-52) % MCV (80-94) fL MCH (27-31) pg MCHC (31-36) g/dl RDW (10.5-15) % Plt Count (150-450) 10^3/ul MPV (7.4-10.4) um3 Neut % (Auto) (38-83) % Lymph % (Auto) (25-47) % [place] % (Auto) (0-7) % Eos % (Auto) (0-6) % Baso % (Auto) (0-2) % Absolute Neuts (auto) (1.5-7.7) 10^3/ul Absolute Lymphs (auto) (1.0-4.8) 10^3/ul Absolute Monos (auto) (0-0.8) 10^3/ul Absolute Eos (auto) (0-0.6) 10^3/ul Absolute Basos (auto) (0-0.2) 10^3/ul Absolute Nucleated RBC 10^3/ul Nucleated RBC % INR (Anticoag Therapy) (0.77-1.02) APTT (26.0-36.3) seconds Sodium 137 (135-145) mmol/L Potassium TNP Chloride 107 (101-111) mmol/L Carbon Dioxide 25 (22-32) mmol/L Anion Gap 5 (2-11) mmol/L BUN 17 (6-24) mg/dL Creatinine 1.08 (0.67-1.17) mg/dL Est GFR ( Amer) 84.1 (>60) Est GFR (Non-Af Amer) 69.5 (>60) BUN/Creatinine Ratio 15.7 (8-20) Glucose 103 H (70-100) mg/dL Calcium 9.8 (8.6-10.3) mg/dL Total Bilirubin 0.50 (0.2-1.0) mg/dL AST TNP ALT 17 (7-52) U/L Alkaline Phosphatase 87 (34-104) U/L Troponin I 0.00 (<0.04) ng/mL Total Protein 7.2 (6.4-8.9) g/dL Albumin 4.4 (3.2-5.2) g/dL Globulin 2.8 (2-4) g/dL Albumin/Globulin Ratio 1.6 (1-3) Lipase 28 (11.0-82.0) U/L Blood Type Antibody Screen Result Diagrams: 10/14/17 20:26 10/14/17 20:26 Lab Statement: Any lab studies that have been ordered have been reviewed, and results considered in the medical decision making process. - CT CT ABD/Pelvis CT Interpretation Completed By: Radiologist - 1. NO EVIDENCE FOR ACUTE FINDING OR CAUSE FOR THE PATIENT'S ABDOMINAL PAIN IS SEEN. 2. SPLENOMEGALY, UNCHANGED. 3. MULTIPLE HEPATIC CYSTS. 4. SMALL PERIUMBILICAL HERNIA CONTAINING NONDISTENDED SMALL BOWEL, UNCHANGED. ED physician has reviewed this radiology report. - Ultrasound No standard instances Ultrasound Interpretation Completed By: Radiologist - US gallbladder: 1. THE GALLBLADDER IS CONTRACTED AND OTHERWISE UNREMARKABLE. 2. HEPATIC CYST. Dr. Dutton has reviewed this report. - EKG 2026 Cardiac Rate: NL EKG Rhythm: Sinus Rhythm - at [address] Segment: Normal EKG Interpretation: nml axis nml intervals Abdominal Pain Fem Course/Dx - Course Course Of Treatment: Patient with chronic recurring abdominal pain on chronic opiates. He refused any type of pain medication due to his pain management contract. His laboratories are benign. Ultrasound of the right upper quadrant failed to reveal any pathology. A CT of the abdomen and pelvis was also read as normal. He does have significant stool burden and so he was started on a bowel regimen and Anusol suppositories for possible external source bleeding, likely renal fissure. He'll follow up with his primary care physician closely. - Diagnoses Differential Diagnosis/HQI/PQRI: Other - Diverticulitis, diverticulosis, pancreatitis, hepatitis, gallbladder disease, bowel obstruction, constipation Provider Diagnoses: Chronic abdominal pain, Anal fissure Discharge - Sign-Out/Discharge Documenting (check all that apply): Discharge/Admit/Transfer - Discharge Plan Condition: Good Disposition: HOME Prescriptions: Docusate Sodium [Colace] 100 mg PO BID PRN #30 capsule PRN Reason: Constipation Hydrocortisone SUPP* [Anusol HC Supp*] 25 mg AK TID PRN #6 supp PRN Reason: rectal pain, bleeding Polyethylene Glycol 3350 BTL* [Miralax] 1 cap PO TID PRN #1 btl PRN Reason: Constipation Patient Education Materials: Chronic Abdominal Pain (ED) Referrals: John Paul Spencer MD [Primary Care Provider] - Additional Instructions: Follow-up for the call the pain management in your doctor first thing in the morning. Return with fever, increased pain, recurring bleeding, new symptoms or other concerns. - Billing Disposition and Condition Condition: GOOD Disposition: Home The documentation as recorded by the Apolonia armendariz Gabriel accurately reflects the service I personally performed and the decisions made by me, Sushant Dutton MD.
== END 2017-10-14 22:04 | disposition home or self-care (01) ==
LOC: ED 19:39
DX: R10.11 Right upper quadrant pain (principal); G89.29 Other chronic pain; K60.2 Anal fissure, unspecified; K42.9 Umbilical hernia without obstruction or gangrene; K82.0 Obstruction of gallbladder; K76.9 Liver disease, unspecified; R16.1 Splenomegaly, not elsewhere classified; K76.89 Other specified diseases of liver; Z21 Asymptomatic human immunodeficiency virus [HIV] infection status; K21.9 Gastro-esophageal reflux disease without esophagitis; F41.9 Anxiety disorder, unspecified; M79.7 Fibromyalgia; M19.90 Unspecified osteoarthritis, unspecified site; F17.210 Nicotine dependence, cigarettes, uncomplicated; Z79.899 Other long term (current) drug therapy; Z79.891 Long term (current) use of opiate analgesic; Z88.3 Allergy status to other anti-infective agents
CPT/HCPCS: 36415; 74177; 76705; 80053; 82270; 83690; 84484; 85025; 85610; 85730; 86850; 86900; 86901; 93005; 99283; Q9967

== ENCOUNTER 2017-10-22 10:59 | Emergency (ER) | payer MEDICARE, MEDICAID ==
--- NOTE | 2017-10-22 12:15 | RAD ---
Indication: Abdominal pain. Flat and upright views of the abdomen demonstrates no free air. Fecal stasis is noted. No dilated loops of bowel are noted. IMPRESSION: Stool throughout the colon. No free air or obstruction is noted.
[2017-10-22 12:22] LABS: ABS Basophils 0.1 10^3/ul (0-0.2); ABS Eosinophils 0.1 10^3/ul (0-0.6); ABS Lymphocytes 2.2 10^3/ul (1.0-4.8); ABS Monocytes 0.6 10^3/ul (0-0.8); ABS Neutrophils 6.9 10^3/ul (1.5-7.7); ABS Nucleated RBC 0 10^3/ul; Eosinophil % 1.3 % (0-6); Hematocrit 47 % (42-52); Hemoglobin 16.4 g/dl (14.0-18.0); Lymphocyte % 22.1 % (25-47); Mean Corpuscular HGB Conc 35 g/dl (31-36); Mean Corpuscular Hemoglobin 33 pg (27-31); Mean Corpuscular Volume 94 fL (80-94); Mean Platelet Volume 8.7 um3 (7.4-10.4); Nucleated Red Blood Cells % 0.1; Platelet Count 228 10^3/ul (150-450); Red Blood Count 5.01 10^6/ul (4.00-5.40); Red Cell Distribution Width 13 % (10.5-15)
--- NOTE | 2017-10-22 12:37 | ED ---
Abdominal Pain/Male - HPI Summary HPI Summary: This is scribe Telma Huynh documenting for attending Sushant Dutton M.D. Pt is a 62 y/o M who presents to [facility] c/o abdominal pain. The pain is described as 8/ 10 in severity, sharp, aching, and over his LLQ. He was here 8 days ago for abdominal pain and bloody stool, and was diagnosed with chronic abdominal pain and anal fissure. A RUQ US and CT A/P were both negative. Pt states the Miralax made him nauseated so he stopped taking it. He claims [facility] did not fill out the suppository prescription for his anal fissure, so he did not use it. He started to feel better, but 2 days ago suddenly became diaphoretic again and since has had worsening abdominal pain. His last normal BM was 3 days ago, and now had small flat BMs that looked like lasagna noodles. Pt also c/o mild fever of 100 degrees F, distended abdomen, SOB caused by stress. He denies any CP. PMHx HIV, fibromyalgia, and arthritis, for which he sees pain management. Movement makes his pain worse. Pt is a smoker. - History of Current Complaint Chief Complaint: EDAbdPain Stated Complaint: CONSTIPATION/ABD PAIN Time Seen by Provider: 10/22/17 11:38 Hx Obtained From: Patient Onset/Duration: Gradual Onset, Lasting Days - 9, Worse Since Timing: Constant Severity Currently: Severe Pain Intensity: 8 Pain Scale Used: 0-10 Numeric Location: Discrete At: LLQ Radiates: No Character: Sharp, Other: - Aching Aggravating Factor(s): Movement Alleviating Factor(s): Nothing Associated Signs And Symptoms: Positive: Diaphoresis, Constipation, Other - "flat" stool. Negative: Chest Pain - Allergies/Home Medications Allergies/Adverse Reactions: Allergies Allergy/AdvReac Type Severity Reaction Status Date / Time all antibiotics Allergy Mild Diarrhea Uncoded 10/22/17 10:15 ENVIRONMENTAL/SEASONAL Allergy SNEEZE, Uncoded 10/22/17 10:15 COUGH, EYES ITCHY, SINUS PMH/Surg Hx/FS Hx/Imm Hx Endocrine/Hematology History: Reports: Other Endocrine/Hematological Disorders - HIV Denies: Hx Anticoagulant Therapy, Hx Diabetes, Hx Thyroid Disease Cardiovascular History: Denies: Hx Hypertension, Hx Pacemaker/ICD Respiratory History: Reports: Hx Sleep Apnea - HX OF BEFORE HAVING SURGERY Denies: Hx Asthma, Hx Chronic Obstructive Pulmonary Disease (COPD) GI History: Reports: Hx Gastroesophageal Reflux Disease - ON MEDS History: Denies: Hx Renal Disease Musculoskeletal History: Reports: Hx Arthritis - OSTEOARTHRITIS, Hx Back Problems, Hx Fibromyalgia, Other Musculoskeletal History - 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 Fibromyalgia. Denies: Hx Dementia, Hx Seizures, Hx Transient Ischemic Attacks (TIA) Psychiatric History: Reports: Hx Anxiety, Hx Depression Denies: Hx Panic Disorder, Hx Substance Abuse - Surgical History Surgery Procedure, Year, and Place: SURGERY TO REMOVE EXTRA BONE FROM NASAL PASSAGE Hx Anesthesia Reactions: No - Immunization History Immunizations Up to Date: Yes Infectious Disease History: Yes Infectious Disease History: Reports: Hx Human Immunodeficiency Virus (HIV) Denies: Hx Hepatitis, Traveled Outside the [place] in Last 30 Days - Family History Known Family History: Negative: Respiratory Disease, Seizure Disorder - Social History Alcohol Use: Weekly Alcohol Amount: 2 drinks per week Substance Use Type: Reports: None Smoking Status (MU): Current Some Day Smoker Type: Cigarettes Amount Used/How Often: 1/2 PPD Have You Smoked in the Last Year: Yes Review of Systems Positive: Fever, Skin Diaphoresis Positive: Shortness Of Breath - stress-induced Positive: Abdominal Pain - LLQ, Other - Constipation, "flat" stool, distended abdomen All Other Systems Reviewed And Are Negative: Yes Physical Exam - Summary Physical Exam Summary: Appearance: Well appearing, no pain distress Skin: warm, dry, reflects adequate perfusion Head/face: normal Eyes: EOMI, ERNESTINE ENT: normal Neck: supple, non-tender Respiratory: CTA, breath sounds present Cardiovascular: RRR, pulses symmetrical Abdomen: distended, left mid-abdominal tenderness Bowel Sounds: present Musculoskeletal: normal, strength/ROM intact Neuro: normal, sensory motor intact, A&Ox3 Rectal: no blood, no hard stool in the rectal vault. Triage Information Reviewed: Yes Vital Signs On Initial Exam: Initial Vitals Temp Pulse Resp BP Pulse Ox 98.1 F 83 16 166/94 98 10/22/17 11:05 10/22/17 11:05 10/22/17 11:05 10/22/17 11:05 10/22/17 11:05 Vital Signs Reviewed: Yes Diagnostics - Vital Signs Vital Signs Temp Pulse Resp BP Pulse Ox 10/22/17 11:05 98.1 F 83 16 166/94 98 - Laboratory Lab Results: Lab Results 10/22/17 10/22/17 10/22/17 Range/Units 11:27 11:27 11:27 WBC 10.0 (3.5-10.8) 10^3/ul RBC 5.01 (4.00-5.40) 10^6/ul Hgb 16.4 (14.0-18.0) g/dl Hct 47 (42-52) % MCV 94 (80-94) fL MCH 33 H (27-31) pg MCHC 35 (31-36) g/dl RDW 13 (10.5-15) % Plt Count 228 (150-450) 10^3/ul MPV 8.7 (7.4-10.4) um3 Neut % (Auto) 69.4 (38-83) % Lymph % (Auto) 22.1 L (25-47) % [place] % (Auto) 6.5 (0-7) % Eos % (Auto) 1.3 (0-6) % Baso % (Auto) 0.7 (0-2) % Absolute Neuts (auto) 6.9 (1.5-7.7) 10^3/ul Absolute Lymphs (auto) 2.2 (1.0-4.8) 10^3/ul Absolute Monos (auto) 0.6 (0-0.8) 10^3/ul Absolute Eos (auto) 0.1 (0-0.6) 10^3/ul Absolute Basos (auto) 0.1 (0-0.2) 10^3/ul Absolute Nucleated RBC 0 10^3/ul Nucleated RBC % 0.1 Sodium 136 (135-145) mmol/L Potassium 4.2 (3.5-5.0) mmol/L Chloride 105 (101-111) mmol/L Carbon Dioxide 24 (22-32) mmol/L Anion Gap 7 (2-11) mmol/L BUN 12 (6-24) mg/dL Creatinine 1.06 (0.67-1.17) mg/dL Est GFR ( Amer) 85.9 (>60) Est GFR (Non-Af Amer) 71.0 (>60) BUN/Creatinine Ratio 11.3 (8-20) Glucose 104 H (70-100) mg/dL Lactic Acid 1.3 (0.5-2.0) mmol/L Calcium 10.0 (8.6-10.3) mg/dL Total Bilirubin 0.70 (0.2-1.0) mg/dL AST 14 (13-39) U/L ALT 16 (7-52) U/L Alkaline Phosphatase 97 (34-104) U/L C-Reactive Protein 4.22 (<8.01) mg/L Total Protein 7.5 (6.4-8.9) g/dL Albumin 4.5 (3.2-5.2) g/dL Globulin 3.0 (2-4) g/dL Albumin/Globulin Ratio 1.5 (1-3) Lipase 25 (11.0-82.0) U/L Result Diagrams: 18 11:27 18 11:27 Lab Statement: Any lab studies that have been ordered have been reviewed, and results considered in the medical decision making process. - Radiology Abdomen XR Xray Interpretation: Positive (See Comments) - 11:17 Stool throughout the colon. No free air or obstruction is noted. ED physician reviewed radiology report. Radiology Interpretation Completed By: Radiologist Re-Evaluation - Re-Evaluation First Eval Re-Evaluation Time: 01:04 Change: Improved Comment: Pt had a large BM. Abdominal Pain Fem Course/Dx - Course Course Of Treatment: I Performed soap suds enema after x-ray confirms significant constipation. The patient is on multiple chronic opiates. He has not been on a bowel regimen. He was able to have a large bowel movement with some relief but incompletely after the enema. He will need serial home enemas as well as MiraLAX, Dulcolax, Colace. I've suggested that he see his doctor and consider Relistor for opiate related constipation. - Diagnoses Provider Diagnoses: Chronic constipation, Opioid dependence, Abdominal pain Discharge - Sign-Out/Discharge Documenting (check all that apply): Patient Departure - Discharge - Discharge Plan Condition: Improved Disposition: HOME Prescriptions: Bisacodyl SUPP* [Dulcolax Supp*] 10 mg PO BID #6 supp Docusate Sodium [Colace] 100 mg PO BID #30 cap Hyoscyamine Sulfate [Levsin/Sl] 0.125 mg SL Q6H PRN #30 sub PRN Reason: cramping Patient Education Materials: Constipation (ED), Abdominal Pain (ED) Referrals: John Paul Spencer MD [Primary Care Provider] - Additional Instructions: Use Fleet enema twice daily. Abdominal massage, exercises may help. Use MiraLAX 1 cap in 8 ounces of water or natural free juice every 6-8 hours until well. Return with severe pain, vomiting, new symptoms, worse or other concerns. Your doctor may want to start you on Relistor. - Billing Disposition and Condition Condition: IMPROVED Disposition: Home
[2017-10-22 13:57] VITALS: BP 121/89
== END 2017-10-22 13:55 | disposition home or self-care (01) ==
LOC: ED 10:59
DX: K59.09 Other constipation (principal); F11.20 Opioid dependence, uncomplicated; R10.12 Left upper quadrant pain; F17.210 Nicotine dependence, cigarettes, uncomplicated; Z21 Asymptomatic human immunodeficiency virus [HIV] infection status; M79.7 Fibromyalgia; M19.90 Unspecified osteoarthritis, unspecified site; Z88.3 Allergy status to other anti-infective agents; G90.522 Complex regional pain syndrome I of left lower limb; B20 Human immunodeficiency virus [HIV] disease; M54.2 Cervicalgia; M54.5 Low back pain; R10.84 Generalized abdominal pain; Z79.891 Long term (current) use of opiate analgesic; Z71.6 Tobacco abuse counseling
CPT/HCPCS: 36415; 74018; 80053; 83605; 83690; 85025; 86140; 99282